=== PATIENT | female | born 1995 | race Caucasian/White ===

== ENCOUNTER → 2016-12-02 | Outpatient (REF) | payer OTHER | LOC: M LAB REF 09:23 | PROVIDERS: ATTEND Physician Assistant | DX: J02.9 Acute pharyngitis, unspecified (principal) ==

== ENCOUNTER → 2017-06-08 | Outpatient (CLI) | payer OTHER ==
[2017-06-08 11:25] LABS: BASO % 0.2 % (0.0-1.0); EOS # 0.1 K/mm3 (0.0-0.50); EOS % 1.1 % (0.0-3.0); LARGE UNSTAINED CELL # 0.1 K/mm3 (0.0-0.4); LARGE UNSTAINED CELL % 1.4 % (0.0-4.0); LYMPH # 1.8 K/mm3 (1.5-6.5); LYMPH % 22.1 % (24.0-44.0); MEAN CORPUSCULAR HEMOGLOBIN 32.8 pg (27.0-33.0); MEAN CORPUSCULAR HGB CONC 35.6 g/dl (32.0-36.5); MEAN CORPUSCULAR VOLUME 92.2 fl (80.0-96.0); MONO # 0.4 K/mm3 (0.0-0.8); MONO % 4.8 % (0.0-5.0); NEUTROPHILS # 5.4 K/mm3 (1.8-7.7); NEUTROPHILS % 70.4 % (36.0-66.0); PLATELET COUNT, AUTOMATED 224 k/mm3 (150-450); RED CELL DISTRIBUTION WIDTH 12.5 % (11.5-14.5); WHITE BLOOD COUNT 7.7 K/mm3 (4.0-10.0)
[2017-06-08 13:49] LABS: HBsAg Prenatal NEGATIVE (NEGATIVE)
== END ==
LOC: M LAB 10:31
PROVIDERS: ATTEND Advanced Practice Midwife
DX: Z34.81 Encounter for supervision of other normal pregnancy, first trimester (principal)

== ENCOUNTER → 2017-06-28 | Outpatient (REF) | payer OTHER ==
[2017-07-26 11:24] LABS: SUMMARY SEE SEPARATE REPORT
== END ==
LOC: M LAB REF 13:09
PROVIDERS: ATTEND Advanced Practice Midwife
DX: Z34.81 Encounter for supervision of other normal pregnancy, first trimester (principal)

== ENCOUNTER → 2017-09-21 | Outpatient (CLI) | payer BC, OTHER ==
[2017-09-21 13:20] LABS: BASO % 0.1 % (0.0-1.0); EOS # 0.1 10^3/uL (0.0-0.50); IMMATURE GRANULOCYTE % 0.1 % (0-0); LYMPH # 1.6 10^3/uL (1.5-6.5); LYMPH % 20.7 % (24.0-44.0); MEAN CORPUSCULAR HEMOGLOBIN 32.5 pg (27.0-33.0); MEAN CORPUSCULAR HGB CONC 34.4 g/dl (32.0-36.5); MEAN CORPUSCULAR VOLUME 94.4 fl (80.0-96.0); MONO # 0.6 10^3/uL (0.0-0.8); MONO % 7.4 % (0.0-5.0); NEUTROPHILS # 5.5 10^3/uL (1.8-7.7); NEUTROPHILS % 70.7 % (36.0-66.0); PLATELET COUNT, AUTOMATED 232 10^3/uL (150-450); RED CELL DISTRIBUTION WIDTH 12.3 % (11.5-14.5); WHITE BLOOD COUNT 7.7 10^3/uL (4.0-10.0)
== END ==
LOC: M SMT 10:11
PROVIDERS: ATTEND Advanced Practice Midwife
DX: Z36.89 Encounter for other specified antenatal screening (principal); Z3A.00 Weeks of gestation of pregnancy not specified
CPT/HCPCS: 36415; 82950; 85025; 86850; 86900; 86901; J2790

== ENCOUNTER → 2017-11-23 | Outpatient (REF) | payer OTHER | LOC: M LAB REF 17:05 | DX: Z34.83 Encounter for supervision of other normal pregnancy, third trimester (principal) ==

== ENCOUNTER 2017-12-27 10:06 | Inpatient (IN) | payer BC, OTHER ==
[2017-12-27 11:14] LABS: HEMATOCRIT 31.7 % (36.0-47.0); HEMOGLOBIN 10.7 g/dl (12.0-16.0); MEAN CORPUSCULAR HEMOGLOBIN 28.8 pg (27.0-33.0); MEAN CORPUSCULAR HGB CONC 33.8 g/dl (32.0-36.5); MEAN CORPUSCULAR VOLUME 85.4 fl (80.0-96.0); PLATELET COUNT, AUTOMATED 222 10^3/uL (150-450); RED BLOOD COUNT 3.71 10^6/uL (4.00-5.40); RED CELL DISTRIBUTION WIDTH 12.2 % (11.5-14.5); WHITE BLOOD COUNT 7.9 10^3/uL (4.0-10.0)
[2017-12-27] MEDS: miSOPROStol 50 MCG 1/2 TAB (S0191) PO ×2 (12:12→17:07)
[2017-12-27] MEDS: LR 1,000 ML IV (22:02)
[2017-12-27] MEDS: BUTORPHANOL 2 MG/ML INJ (J0595) IV (22:15)
[2017-12-27] MEDS: PROMETHAZINE INJ 25 MG/ML VIAL (J2550) IV (22:15)
[2017-12-27] MEDS ORDERED: OXYTOCIN DRIP 30 UNITS in APPROPRIATE DILUENT 1 EA IV (22:15)
[2017-12-28] MEDS: PROMETHAZINE INJ 25 MG/ML VIAL (J2550) IV (01:00)
[2017-12-28] MEDS: BUTORPHANOL 2 MG/ML INJ (J0595) IV (01:00)
[2017-12-28] MEDS: LR 1,000 ML IV ×3 (04:51→17:01)
[2017-12-28 06:59] LABS: HEMATOCRIT 30.1 % (36.0-47.0); HEMOGLOBIN 10.2 g/dl (12.0-16.0); MEAN CORPUSCULAR HEMOGLOBIN 28.9 pg (27.0-33.0); MEAN CORPUSCULAR HGB CONC 33.9 g/dl (32.0-36.5); MEAN CORPUSCULAR VOLUME 85.3 fl (80.0-96.0); PLATELET COUNT, AUTOMATED 213 10^3/uL (150-450); RED BLOOD COUNT 3.53 10^6/uL (4.00-5.40); RED CELL DISTRIBUTION WIDTH 12.2 % (11.5-14.5)
[2017-12-28] MEDS ORDERED: FENTANYL 2MCG/ML ROPIVACAINE 0.2% IN 0.9% NACL 200ML IVBAG As Ordered (07:11)
[2017-12-28] MEDS ORDERED: LACTATED RINGER'S 1000 ML IV (08:15)
[2017-12-28] MEDS ORDERED: FENTANYL/ROPIVACAINE/NACL BAG 200 ML EPIDURAL (08:15)
[2017-12-28] MEDS ORDERED: EPIDURAL COMMENT XX (08:15)
[2017-12-28] MEDS ORDERED: diphenhydrAMINE INJ 50MG/ML VIAL (J1200) IV (08:15)
[2017-12-28] MEDS ORDERED: NALOXONE INJ 0.4 MG/1 ML VIAL (J2310) IV (08:15)
[2017-12-28] MEDS ORDERED: EPIDURAL/PCA KEYS XX (08:15)
[2017-12-28] MEDS ORDERED: REFRIGERATOR IV KEYS XX (08:15)
[2017-12-28] MEDS: ePHEDrine SULFATE 25 MG/5 ML(5MG/ML) SYRINGE IV (09:13)
[2017-12-28] MEDS: ONDANSETRON 4MG/2ML VIAL (J2405) IV (11:18)
[2017-12-28] MEDS ORDERED: ceFAZolin 2 GM/D5W 50 ML IV BAG (J0690 PER 500MG) As Ordered (19:05)
[2017-12-28] MEDS ORDERED: CHLOROPROCAINE PRES. FREE 3% INJ 20 ML VIAL (J2400) As Ordered (19:15)
[2017-12-28] MEDS: AZITHROMYCIN INJ 500 MG, VIAL MATE ADAPTER 1 EACH in D5W 250 ML IV (19:15)
[2017-12-28] MEDS ORDERED: OXYTOCIN INJ 10 UNITS/ML VIAL (J2590) As Ordered ×4 (19:17→20:17)
[2017-12-28] MEDS: BICITRA 30ML SOLN UDC PO (19:22)
[2017-12-28] MEDS ORDERED: MORPHINE PRES-FREE INJ 10 MG/10 ML VIAL (J2274) As Ordered (19:23)
[2017-12-28] MEDS ORDERED: ePHEDrine SULFATE 25 MG/5 ML(5MG/ML) SYRINGE As Ordered (19:34)
[2017-12-28] MEDS ORDERED: PHENYLephrine HCL 500 MCG/5 ML (100MCG/ML) SYRINGE (J2370) As Ordered (19:35)
[2017-12-28] MEDS ORDERED: MIDAZOLAM INJ 2 MG/2 ML VIAL (J2250) As Ordered (19:40)
[2017-12-28] MEDS ORDERED: ONDANSETRON 4MG/2ML VIAL (J2405) As Ordered (19:44)
[2017-12-28] MEDS ORDERED: KETAMINE HCL 200 MG/20 ML VIAL As Ordered (19:55)
[2017-12-28] MEDS ORDERED: fentaNYL 100 MCG/2 ML INJECTION (J3010) As Ordered (20:14)
[2017-12-28 20:16] LABS: CORD GAS ABE A -2.9; CORD GAS HCO3 A 25.7 MEQ/L; CORD GAS PCO2 A 59.7 mmHg; CORD GAS PH A 7.251 UNITS; CORD GAS PO2 A 14.8 mmHg; CORD GAS SBC A 20.1 MEQ/L; CORD GAS TCO2 A 27.5 MEQ/L
[2017-12-28 20:19] LABS: CORD GAS ABE V -0.4; CORD GAS HCO3 V 26.6 MEQ/L; CORD GAS O2 SAT V 33.6 %; CORD GAS PH V 7.326 UNITS; CORD GAS PO2 V 16.3 mmHg; CORD GAS SBC V 22.4 MEQ/L; CORD GAS TCO2 V 28.2 MEQ/L
[2017-12-28] MEDS ORDERED: LR 1,000 ML IV (20:34)
[2017-12-28] MEDS ORDERED: OXYTOCIN DRIP 30 UNITS in APPROPRIATE DILUENT 1 EA IV (20:34)
[2017-12-28] MEDS ORDERED: HYDROmorphone HCL 1 MG/ML SYRINGE (J1170) As Ordered (20:41)
[2017-12-28] MEDS ORDERED: PROMETHAZINE 25 MG TAB PO (20:45)
[2017-12-28] MEDS ORDERED: PERCOCET 5MG/325MG TAB PO ×2 (20:45→21:15)
[2017-12-28] MEDS ORDERED: MEASLES,MUMPS,RUBELLA VACCINE INJ (MMR-II) (90707) SC (20:45)
[2017-12-28] MEDS ORDERED: ONDANSETRON 4MG/2ML VIAL (J2405) IV ×2 (20:45→21:15)
[2017-12-28] MEDS: KETOROLAC 30 MG/ML VIAL (J1885) IV (20:45)
[2017-12-28] MEDS ORDERED: fentaNYL 100 MCG/2 ML INJECTION (J3010) IV (21:15)
[2017-12-28] MEDS ORDERED: HYDROmorphone HCL 1 MG/ML SYRINGE (J1170) IV (21:15)
[2017-12-28] MEDS ORDERED: NALBUPHINE HCL 10 MG/ML AMP (J2300) IV (21:15)
[2017-12-28] MEDS ORDERED: MEPERIDINE INJ 25 MG/ML VIAL (J2175) IV (21:15)
[2017-12-29] MEDS: DOCUSATE SODIUM 100 MG CAP PO ×3 (00:41→21:47)
[2017-12-29] MEDS: PERCOCET 5MG/325MG TAB PO ×5 (00:42→23:05)
[2017-12-29] MEDS: KETOROLAC 30 MG/ML VIAL (J1885) IV ×3 (03:15→15:07)
[2017-12-29 07:12] LABS: HEMATOCRIT 28.8 % (36.0-47.0); HEMOGLOBIN 9.5 g/dl (12.0-16.0); MEAN CORPUSCULAR HEMOGLOBIN 28.3 pg (27.0-33.0); MEAN CORPUSCULAR VOLUME 85.7 fl (80.0-96.0); PLATELET COUNT, AUTOMATED 218 10^3/uL (150-450); RED BLOOD COUNT 3.36 10^6/uL (4.00-5.40); RED CELL DISTRIBUTION WIDTH 12.1 % (11.5-14.5); WHITE BLOOD COUNT 18.9 10^3/uL (4.0-10.0)
[2017-12-29] MEDS: PRENATAL VITAMINS CHEWABLE TABLET PO (09:14)
[2017-12-29 11:19] LABS: FETAL SCREEN PROF. 1 1
[2017-12-29] MEDS: RHOGAM 300 MCG (1500 IU) INJ (J2790) IM (12:37)
[2017-12-29] MEDS: IBUPROFEN 800 MG TAB PO (22:21)
[2017-12-30] MEDS: PERCOCET 5MG/325MG TAB PO ×2 (03:05→10:08)
[2017-12-30] MEDS: IBUPROFEN 800 MG TAB PO (07:17)
[2017-12-30] MEDS: PRENATAL VITAMINS CHEWABLE TABLET PO (10:07)
[2017-12-30] MEDS: DOCUSATE SODIUM 100 MG CAP PO (10:07)
== END 2017-12-30 12:35 | disposition home or self-care (01) | DRG 540 ==
LOC: M LDI 10:06 → M OBS 12-28 22:00
PROVIDERS: Advanced Practice Midwife
PROC: 10D00Z1 Extraction of Products of Conception, Low, Open Approach (ICD-10-PCS; principal; 2017-12-28 19:31)
PROC: 10907ZC Drainage of Amniotic Fluid, Therapeutic from Products of Conception, Via Natural or Artificial Opening (ICD-10-PCS; 2017-12-28 19:31)
PROC: 3E033VJ Introduction of Other Hormone into Peripheral Vein, Percutaneous Approach (ICD-10-PCS; 2017-12-28 19:31)
DX: O48.0 Post-term pregnancy (principal); O98.42 Viral hepatitis complicating childbirth; F32.9 Major depressive disorder, single episode, unspecified; Z3A.41 41 weeks gestation of pregnancy; O99.344 Other mental disorders complicating childbirth; F41.9 Anxiety disorder, unspecified; O34.83 Maternal care for other abnormalities of pelvic organs, third trimester; B18.2 Chronic viral hepatitis C; O62.0 Primary inadequate contractions; O61.0 Failed medical induction of labor; O62.2 Other uterine inertia; Z37.0 Single live birth

== ENCOUNTER → 2018-07-22 | Outpatient (CLI) | payer BC, OTHER ==
[2018-07-22 15:04] LABS: HEMATOCRIT 37.6 % (36.0-47.0); HEMOGLOBIN 11.9 g/dl (12.0-15.5); MEAN CORPUSCULAR HEMOGLOBIN 26.2 pg (27.0-33.0); MEAN CORPUSCULAR HGB CONC 31.6 g/dl (32.0-36.5); MEAN CORPUSCULAR VOLUME 82.6 fl (80.0-96.0); PLATELET COUNT, AUTOMATED 225 10^3/uL (150-450); RED BLOOD COUNT 4.55 10^6/uL (4.00-5.40); RED CELL DISTRIBUTION WIDTH 13.9 % (11.5-14.5); WHITE BLOOD COUNT 6.2 10^3/uL (4.0-10.0)
[2018-07-22 15:22] LABS: CONTROL LINE HCG INT CTR LINE PRESENT; HCG, SERUM QUALITATIVE NEGATIVE (NEGATIVE)
[2018-07-22 15:37] LABS: ALBUMIN 4.2 GM/DL (3.2-5.2); ALBUMIN/GLOBULIN RATIO 1.11 (1.00-1.93); ALKALINE PHOSPHATASE 90 U/L (45-117); ALT/SGPT 29 U/L (12-78); ANION GAP 7 MEQ/L (8-16); AST/SGOT 21 U/L (7-37); BILIRUBIN,TOTAL 1.2 MG/DL (0.2-1.0); BLOOD UREA NITROGEN 16 MG/DL (7-18); CALCIUM LEVEL 9.1 MG/DL (8.5-10.1); CARBON DIOXIDE LEVEL 30 MEQ/L (21-32); CHLORIDE LEVEL 105 MEQ/L (98-107); CREATININE FOR GFR 0.72 MG/DL (0.55-1.30); GLOMERULAR FILTRATION RATE > 60.0 (>60); GLUCOSE, FASTING 93 MG/DL (70-100); POTASSIUM SERUM 3.9 MEQ/L (3.5-5.1); SODIUM LEVEL 142 MEQ/L (136-145)
[2018-07-22 17:15] LABS: CHLAMYDIA DNA AMPLIFICATION NEGATIVE (NEGATIVE); GC DNA AMPLIFICATION NEGATIVE (NEGATIVE)
[2018-07-24 10:20] LABS: HEPATITIS B SURFACE ANTIGEN NEGATIVE (NEGATIVE)
[2018-07-24 10:50] LABS: HIV 1&2 SCREEN CENTAUR NEGATIVE (NEGATIVE)
[2018-07-24 11:04] LABS: HEPATITIS C VIRUS ABY INDEX > 11.0 INDEX (<0.8)
== END ==
LOC: M LAB 14:28
DX: F11.20 Opioid dependence, uncomplicated (principal)
CPT/HCPCS: 93005

== ENCOUNTER → 2019-02-11 | Outpatient (REF) | payer BC, OTHER ==
[~2019-02-11] MED LIST: COLA100C5 PO; IBUP80TA PO; OXYC1TAB23 PO; PREN1CHW4 PO; RANI150C PO
== END ==
LOC: M LAB REF 14:06
PROVIDERS: ATTEND Physician Assistant
DX: J02.9 Acute pharyngitis, unspecified (principal)

== ENCOUNTER → 2019-07-22 | Outpatient (CLI) | payer BC, OTHER ==
[2019-07-22 13:33] LABS: HEMATOCRIT 41.4 % (36.0-47.0); MEAN CORPUSCULAR HEMOGLOBIN 30.6 pg (27.0-33.0); MEAN CORPUSCULAR HGB CONC 33.8 g/dl (32.0-36.5); MEAN CORPUSCULAR VOLUME 90.6 fl (80.0-96.0); PLATELET COUNT, AUTOMATED 183 10^3/uL (150-450); RED BLOOD COUNT 4.57 10^6/uL (4.00-5.40); WHITE BLOOD COUNT 7.9 10^3/uL (4.0-10.0)
[2019-07-22 13:57] LABS: ALBUMIN 4.2 GM/DL (3.2-5.2); ALT/SGPT 26 U/L (12-78); BILIRUBIN,TOTAL 1.2 MG/DL (0.2-1.0); BLOOD UREA NITROGEN 18 MG/DL (7-18); CALCIUM LEVEL 9.2 MG/DL (8.5-10.1); CARBON DIOXIDE LEVEL 26 MEQ/L (21-32); CHLORIDE LEVEL 107 MEQ/L (98-107); CREATININE FOR GFR 0.79 MG/DL (0.55-1.30); GLOMERULAR FILTRATION RATE > 60.0 (>60); GLUCOSE, FASTING 90 MG/DL (70-100); POTASSIUM SERUM 3.6 MEQ/L (3.5-5.1); SODIUM LEVEL 139 MEQ/L (136-145); TOTAL PROTEIN 7.5 GM/DL (6.4-8.2)
[2019-07-22 16:24] LABS: CHLAMYDIA DNA AMPLIFICATION NEGATIVE (NEGATIVE); GC DNA AMPLIFICATION NEGATIVE (NEGATIVE)
--- NOTE | 2019-07-22 17:27 | ECGEPIP ---
[facility] Test Date: 2019-07-22 Pat Name: ANGELA WANG Department: Room: - Gender: Female Body Worker: : 1995 Requested By: Jesus Lopez Order Number: [id number] Reading MD: Harman Edwards Measurements Intervals [place] Rate: 84 P: 54 AR: 155 QRS: 75 QRSD: 113 T: 29 QT: 370 QTc: 438 Interpretive Statements SINUS RHYTHM WITH SINUS ARRHYTHMIA INCOMPLETE RIGHT BUNDLE BRANCH BLOCK NO CHANGE COMPARED TO 07/22/18 Electronically Signed on 07-22-2019 17:27:01 EDT by Harman Edwards
[2019-07-23 10:19] LABS: HCG, SERUM QUALITATIVE NEGATIVE (NEGATIVE)
[2019-07-23 10:39] LABS: HEPATITIS B SURFACE ANTIGEN NEGATIVE (NEGATIVE)
[2019-07-23 11:07] LABS: HIV 1&2 SCREEN CENTAUR NEGATIVE (NEGATIVE)
[2019-07-23 11:38] LABS: HEPATITIS C VIRUS ABY INDEX > 11.0 INDEX (<0.8)
== END ==
LOC: M LAB 12:59
PROVIDERS: ATTEND Family Medicine
DX: F11.20 Opioid dependence, uncomplicated (principal)

== ENCOUNTER → 2019-08-11 | Outpatient (REF) | payer OTHER | LOC: M SFHCLERA 13:28 | PROVIDERS: ATTEND Physician Assistant | DX: J02.0 Streptococcal pharyngitis (principal) ==

== ENCOUNTER → 2019-09-16 | Outpatient (CLI) | payer BC, OTHER ==
[2019-09-16 19:39] LABS: BASO % 0.3 % (0.0-1.0); EOS # 0.1 10^3/uL (0.0-0.5); EOS % 1.2 % (0.0-3.0); HEMATOCRIT 36.3 % (36.0-47.0); HEMOGLOBIN 12.4 g/dl (12.0-15.5); LYMPH # 1.9 10^3/uL (1.5-5.0); LYMPH % 29.2 % (24.0-44.0); MEAN CORPUSCULAR HEMOGLOBIN 31.5 pg (27.0-33.0); MEAN CORPUSCULAR HGB CONC 34.2 g/dl (32.0-36.5); MEAN CORPUSCULAR VOLUME 92.1 fl (80.0-96.0); MONO # 0.5 10^3/uL (0.0-0.8); MONO % 7.5 % (0.0-5.0); NEUTROPHILS % 61.5 % (36.0-66.0); PLATELET COUNT, AUTOMATED 201 10^3/uL (150-450); RED BLOOD COUNT 3.94 10^6/uL (4.00-5.40); WHITE BLOOD COUNT 6.4 10^3/uL (4.0-10.0)
[2019-09-16 20:07] LABS: AMPHETAMINES URINE REFLEX NEGATIVE (NEGATIVE); BARBITURATES URINE REFLEX NEGATIVE (NEGATIVE); BENZODIAZEPINES URINE REFLEX NEGATIVE (NEGATIVE); CANNABINOIDS URINE REFLEX NEGATIVE (NEGATIVE); COCAINE METABOLITE URINE REFLE NEGATIVE (NEGATIVE); OPIATES URINE REFLEX NEGATIVE (NEGATIVE); PHENCYCLIDINE URINE REFLEX NEGATIVE (NEGATIVE)
[2019-09-16 20:12] LABS: METHADONE URINE REFLEX PENDING CONFIRMATION (NEGATIVE)
[2019-09-16 21:21] LABS: CHLAMYDIA DNA AMPLIFICATION NEGATIVE (NEGATIVE); GC DNA AMPLIFICATION NEGATIVE (NEGATIVE)
[2019-09-17 13:44] LABS: HIV 1&2 SCREEN CENTAUR NEGATIVE (NEGATIVE); RUBELLA IgG QUALITATIVE IMMUNE (IMMUNE)
[2019-09-17 13:45] LABS: HEPATITIS C VIRUS ABY INDEX > 11.0 INDEX (<0.8)
== END ==
LOC: M LRY 12:48
PROVIDERS: ATTEND Advanced Practice Midwife
DX: Z3A.01 Less than 8 weeks gestation of pregnancy (principal); Z34.81 Encounter for supervision of other normal pregnancy, first trimester
CPT/HCPCS: 36415; 80307; 85025; 86762; 86780; 86803; 86850; 87086; 87340; 87389; 87491; 87521; 87591; G0480

== ENCOUNTER → 2019-10-16 | Outpatient (REF) | payer OTHER | LOC: M SFHCWAGY 09:09 | PROVIDERS: ATTEND Advanced Practice Midwife | DX: Z12.4 Encounter for screening for malignant neoplasm of cervix (principal) ==

== ENCOUNTER → 2019-11-13 | Outpatient (CLI) | payer BC, OTHER ==
[2019-11-13 18:22] LABS: FREE T4 1.13 NG/DL (0.76-1.46); THYROID STIMULATING HORMONE 0.762 uIU/ML (0.358-3.740)
--- NOTE | 2019-11-14 05:11 | REP ---
Clinical: Anatomical evaluation. Comparison: None . Findings: Examination demonstrates a single live intrauterine in breech presentation. motion is identified by technologist. Placenta is noted posterior/left lateral and grade zero without evidence for placenta previa or abruption. Amniotic fluid volume is normal. Cervix measures 3.0 cm in length and appears closed. No evidence for nuchal cord. Gestational age by current measurements 19 weeks 5 days with MAXIMUS 04/03/2020 . FHR equals 135 beats per minute. BPD 4.6 cm 19 weeks 6 days HC 16.1 cm 18 weeks 6 days AC 14.4 cm 19 weeks 5 days FL 2.8 cm 18 weeks 4 days HL 2.8 cm 19 weeks 0 days HC/AC ratio 1.12 Estimated weight 279 grams ( 29th percentile). Anatomical assessment demonstrates normal structures including cranium, cavum, cerebellum/posterior fossa, facial features, lungs, four-chamber heart/ventricular outflow tracts, diaphragm, stomach, cord insertion/three-vessel cord, kidneys/bladder, and extremities. Bilateral choroid plexus cysts are identified measuring up to 10 mm on the right and 6 - 8 mm on the left. Impression: 1. Single live intrauterine in breech presentation. 2. Bilateral choroid plexus cysts and incomplete evaluation of the spine warrant reevaluation and follow-up.
== END ==
LOC: M WHC 15:01
PROVIDERS: ATTEND Advanced Practice Midwife
DX: L29.9 Pruritus, unspecified (principal)

== ENCOUNTER → 2019-12-21 | Outpatient (CLI) | payer BC, OTHER ==
--- NOTE | 2019-12-21 10:06 | REP ---
Obstetric sonography: History: Supervision of followup anatomy. Spine, cord plexus cysts. Comparison of OB sonography November 13, 2019. Findings: Scanning through the gravid uterus demonstrates a viable single intrauterine gestation in a cephalic lie. motion is observed and heart rate is recorded at 132 beats per minute. A posterior grade zero placenta is seen without evidence of previa. Amniotic fluid is subjectively normal. Closed cervical length measures 3.7 cm and viewed transabdominally. No extrauterine abnormality is seen. There has been appropriate interval growth. The previously noted choroid plexus cysts have resolved. The spine is visualized and felt to be unremarkable today. Biometry chart: BPD 6.1 cm 24 weeks 5 days head circumference 22.2 cm 24 weeks 2 days abdominal pounds 19.6 cm 24 weeks 2 days femur length 4.3 cm 23 weeks 6 days humeral length 3.9 cm 24 weeks 0 days HC/AC ratio normal 1.13 cephalic index normal 0.76 estimated weight 606 5 grams, 1 pound 7 ounces, 18th percentile for 25 weeks 1 day. Impression: Viable single intrauterine gestation at 23 weeks 6 days by today's composite sonographic criteria. Expected gestational age estimate based on prior sonography is 25 weeks 1 day. MAXIMUS by prior sonography April 03, 2020. In conjunction with the prior study, anatomic survey is felt to be complete. Electronically Signed by Yosi Castellanos MD 12/21/2019 09:57 A
== END ==
LOC: M WHC 08:33
PROVIDERS: ATTEND Advanced Practice Midwife
DX: Z34.82 Encounter for supervision of other normal pregnancy, second trimester (principal)

== ENCOUNTER → 2020-01-11 | Outpatient (REF) | payer OTHER, MEDICAID ==
[2020-01-11 13:34] LABS: HEMOGLOBIN 11.7 g/dl (12.0-15.5); MEAN CORPUSCULAR HEMOGLOBIN 31.2 pg (27.0-33.0); MEAN CORPUSCULAR HGB CONC 33.4 g/dl (32.0-36.5); MEAN CORPUSCULAR VOLUME 93.3 fl (80.0-96.0); PLATELET COUNT, AUTOMATED 196 10^3/uL (150-450); RED BLOOD COUNT 3.75 10^6/uL (4.00-5.40); WHITE BLOOD COUNT 7.6 10^3/uL (4.0-10.0)
== END ==
LOC: M PLALAB 09:41
PROVIDERS: ATTEND Advanced Practice Midwife
DX: O34.211 Maternal care for low transverse scar from previous cesarean delivery (principal); Z3A.27 27 weeks gestation of pregnancy

== ENCOUNTER → 2020-02-20 | Outpatient (REF) | payer OTHER, MEDICAID | LOC: M PLALAB 12:18 | PROVIDERS: ATTEND Advanced Practice Midwife | DX: Z36.89 Encounter for other specified antenatal screening (principal); O34.211 Maternal care for low transverse scar from previous cesarean delivery; Z3A.00 Weeks of gestation of pregnancy not specified | CPT/HCPCS: 36415; 86850; 86900; 86901; J2790 ==

== ENCOUNTER → 2020-03-06 | Outpatient (REF) | payer OTHER, MEDICAID | LOC: M SFHCWAGY 18:29 | PROVIDERS: ATTEND Advanced Practice Midwife | DX: O34.211 Maternal care for low transverse scar from previous cesarean delivery (principal); Z3A.33 33 weeks gestation of pregnancy ==

== ENCOUNTER → 2020-03-17 | Outpatient (REF) | payer OTHER, MEDICAID ==
[~2020-03-17] MED LIST changes: +METH40TA3 PO; +METHADONE PO
== END ==
LOC: M PLALAB 12:02
PROVIDERS: ATTEND Advanced Practice Midwife
DX: O34.211 Maternal care for low transverse scar from previous cesarean delivery (principal)

== ENCOUNTER → 2020-03-30 | Outpatient (CLI) | payer OTHER, MEDICAID ==
[~2020-03-30] MED LIST changes: +ACET-683 PO; +TUMS750C22 PO
== END ==
LOC: M LABSMTC 10:34
PROVIDERS: ATTEND Anesthesiology
DX: Z11.59 Encounter for screening for other viral diseases (principal); Z03.818 Encounter for observation for suspected exposure to other biological agents ruled out
CPT/HCPCS: C9803; U0003

== ENCOUNTER 2020-04-02 05:51 | Inpatient (IN) | payer BC, OTHER ==
[~2020-04-02] VITALS: Ht 160 cm; Wt 73.8 kg
[2020-04-02] VITALS (8 sets, daily range): BP systolic 104–129; BP diastolic 57–68
[~2020-04-02 05:51] MED LIST changes: -ACET-683 PO; -TUMS750C22 PO
[2020-04-02] MEDS ORDERED: LR 1,000 ML IV ONE (06:00)
[2020-04-02] MEDS ORDERED: ceFAZolin SOD 2 GM in IV 1 EA IV ONE (06:00)
[2020-04-02] MEDS ORDERED: BICITRA 30ML SOLN UDC PO ONE (06:00)
[2020-04-02] MEDS ORDERED: ACET-683 PO (06:28)
[2020-04-02] MEDS ORDERED: TUMS750C22 PO (06:28)
[2020-04-02] MEDS ORDERED: MORPHINE PRES-FREE INJ 10 MG/10 ML VIAL (J2274) As Ordered ONE (06:51)
[2020-04-02] MEDS ORDERED: OXYTOCIN INJ 10 UNITS/ML VIAL (J2590) As Ordered ONE ×2 (06:51→06:52)
[2020-04-02] MEDS ORDERED: ePHEDrine SULFATE 25 MG/5 ML(5MG/ML) SYRINGE As Ordered ONE (06:51)
[2020-04-02] MEDS ORDERED: PHENYLephrine HCL 500 MCG/5 ML (100MCG/ML) SYRINGE (J2370) As Ordered ONE (06:51)
[2020-04-02] MEDS ORDERED: ONDANSETRON 4MG/2ML VIAL As Ordered ONE (06:52)
[2020-04-02] MEDS ORDERED: dexameTHASONE 4 MG/ML 1ML VIAL (J1100 PER 1MG) As Ordered ONE (06:52)
[2020-04-02] MEDS ORDERED: KETOROLAC 60MG 2ML VIAL As Ordered ONE (06:52)
[2020-04-02] MEDS ORDERED: OXYTOCIN 30 UNITS IN 0.9% NaCl 500ML IV BAG (J2590) As Ordered ONE ×2 (06:56→09:13)
[2020-04-02 06:59] LABS: HEMATOCRIT 32.2 % (36.0-47.0); HEMOGLOBIN 10.7 g/dl (12.0-15.5); MEAN CORPUSCULAR HEMOGLOBIN 27.8 pg (27.0-33.0); MEAN CORPUSCULAR HGB CONC 33.2 g/dl (32.0-36.5); MEAN CORPUSCULAR VOLUME 83.6 fl (80.0-96.0); PLATELET COUNT, AUTOMATED 227 10^3/uL (150-450); RED BLOOD COUNT 3.85 10^6/uL (4.00-5.40); WHITE BLOOD COUNT 9.8 10^3/uL (4.0-10.0)
[2020-04-02] MEDS ORDERED: LR 1,000 ML IV SCH ×3 (07:00→10:00)
[2020-04-02] MEDS ORDERED: diphenhydrAMINE 50MG/ML VIAL (J1200) IV PRN (07:47)
[2020-04-02] MEDS ORDERED: NALOXONE INJ 0.4MG/1ML VIAL (J2310 PER 1MG) IV PRN ×2 (07:47)
[2020-04-02] MEDS ORDERED: ONDANSETRON 4MG/2ML VIAL IV PRN ×3 (07:47→10:00)
[2020-04-02] MEDS ORDERED: NALBUPHINE HCL 10 MG/ML AMP (J2300) IV PRN (07:47)
[2020-04-02] MEDS ORDERED: METOCLOPRAMIDE INJ 10MG/2ML VIAL (J2765 PER 1) IV PRN ×2 (07:47→10:00)
[2020-04-02] MEDS ORDERED: ESMOLOL INJ 100MG/10ML VIAL As Ordered ONE (07:56)
[2020-04-02] MEDS ORDERED: MIDAZOLAM INJ 2MG/2ML VIAL (J2250 PER 1MG) As Ordered ONE (08:07)
[2020-04-02] MEDS ORDERED: OXYTOCIN DRIP 30 UNITS in IV 1 EA IV SCH (09:09)
[2020-04-02] MEDS ORDERED: RHOGAM 300 MCG (1500 IU) INJ (J2790) IM SCH (09:15)
[2020-04-02] MEDS ORDERED: MEASLES,MUMPS,RUBELLA VACCINE INJ (MMR-II) (90707) SC SCH (09:15)
[2020-04-02] MEDS ORDERED: MOM 30ML SUSPENSION UDC PO PRN (09:15)
[2020-04-02] MEDS ORDERED: PERCOCET 5MG/325MG TAB PO PRN (09:15)
--- NOTE | 2020-04-02 09:32 | ROOPDOC ---
[facility] Report Of Operation Report of Operation DATE OF PROCEDURE: 04/02/20 SURGEON: Lorin Wahl M.D. FLOW SPECIALIST: Selena Huang CNM PREOPERATIVE DIAGNOSIS: 1. History of prior section 2. Intrauterine at 39 weeks POSTOPERATIVE DIAGNOSIS: 1. History of prior section 2. Intrauterine at 39 weeks ANESTHESIA: Spinal ESTIMATED BLOOD LOSS: 600 mL URINE OUTPUT: 25 mL INTRAVENOUS FLUIDS: 1700 mL PREOPERATIVE ANTIBIOTICS:. 2 g of Ancef OPERATIVE FINDINGS: Liveborn male , Apgars 9 and 9 was 8 lbs. 13 oz. at 3990 g SPECIMENS:. Cord blood DESCRIPTION OF PROCEDURE: After informed consent was obtained and written consent was reviewed. The patient was brought to the operating room where spinal anesthesia was placed. She was then placed in the supine position with a left lateral tilt. Kinney catheter was placed and to gravity. Patient was then prepped and draped in the normal sterile fashion. A timeout operating room was performed identifying the patient, procedure be performed as well as drug allergies. Anesthesia was tested and deemed to be adequate. Pfannenstiel skin incision was made and this was carried down to the underlying rectus fascia. The fascia was then scored and this incision was extended bilaterally. The fascia was then dissected off the underlying rectus muscle superiorly and inferiorly. The rectus muscles were then in the midline. The peritoneum is then entered. Vesicouterine peritoneum was then tented and excised and a bladder flap was created. Mobius retractor was then placed. Next, a curvilinear incision was then made in the lower uterine segment. Amniotomy was performed, productive, clear fluid. The head was brought to the level of the incision atraumatically and delivered along the shoulders and corpus. The cord was clamped x 2. The infant was brought over to the warmer with a good cry. Placenta was drained and delivered grossly intact. The uterus was cleared of all clots and debris and the uterine incision was then closed in 2 layers using 0 Vicryl, first in a running locking fashion followed by second layer for imbrication. The abdomen suctioned. Surgical sites reinspected and noted be hemostatic. The retractor was then removed. The anterior peritoneum was then reapproximated with 3-0 Vicryl. The rectus muscles were reapproximated 3-0 Vicryl. The fascia was then closed using 0 Vicryl in a running nonlocking fashion. The subcutaneous tissues was then irrigated and suctioned. Subcutaneous tissue was reapproximated using 3-0 Vicryl. Several subdermal stitch is placed using 3-0 Vicryl and the skin was closed with 4-0 Monocryl and subcuticular fashion. This incision was then cleaned and dried and was dressed. The patient was then taken to recovery in stable condition. All counts were correct. My surgical dressing maker Selena Huang played in an essential role during the operation. They assisted with tissue identification retraction, delivery of the , as well as wound closure. LORIN WAHL MD. Apr 02, 2020 09:31
[2020-04-02] MEDS ORDERED: fentaNYL 100 MCG/2 ML INJECTION (J3010) IV PRN (10:00)
[2020-04-02] MEDS: DOCUSATE SODIUM 100 MG CAP PO SCH ×2 (10:42→19:29)
[2020-04-02] MEDS: PRENATAL VITAMINS CHEWABLE TABLET PO SCH (10:42)
[2020-04-02] MEDS: KETOROLAC 30 MG/ML 1ML VIAL IV SCH ×2 (14:16→21:24)
[2020-04-02] MEDS: PERCOCET 5MG/325MG TAB PO PRN ×2 (15:08→19:30)
[2020-04-03] VITALS (7 sets, daily range): BP systolic 107–117; BP diastolic 56–65
[2020-04-03] MEDS: PERCOCET 5MG/325MG TAB PO PRN ×3 (02:41→22:26)
[2020-04-03] MEDS: KETOROLAC 30 MG/ML 1ML VIAL IV SCH (03:06)
[2020-04-03 08:47] LABS: MEAN CORPUSCULAR HEMOGLOBIN 27.6 pg (27.0-33.0); MEAN CORPUSCULAR VOLUME 86.2 fl (80.0-96.0); PLATELET COUNT, AUTOMATED 139 10^3/uL (150-450); WHITE BLOOD COUNT 7.7 10^3/uL (4.0-10.0)
[2020-04-03] MEDS: PRENATAL VITAMINS CHEWABLE TABLET PO SCH (09:11)
[2020-04-03] MEDS: METHADONE 10 MG TAB (S0109) PO SCH (09:12)
[2020-04-03] MEDS: DOCUSATE SODIUM 100 MG CAP PO SCH ×2 (09:12→19:25)
[2020-04-03] MEDS: IBUPROFEN 800 MG TAB PO SCH ×2 (11:25→19:25)
[2020-04-04 02:00] VITALS: BP 117/57
[2020-04-04] MEDS: IBUPROFEN 800 MG TAB PO SCH ×2 (02:31→11:04)
[2020-04-04 06:00] VITALS: BP 107/55
[2020-04-04] MEDS: PERCOCET 5MG/325MG TAB PO PRN (06:13)
[2020-04-04] MEDS ORDERED: OXYC1TAB23 PO (06:46)
[2020-04-04] MEDS ORDERED: IBUP80TA PO (06:46)
[2020-04-04] MEDS: PRENATAL VITAMINS CHEWABLE TABLET PO SCH ×2 (08:45→08:49)
[2020-04-04] MEDS: DOCUSATE SODIUM 100 MG CAP PO SCH (08:45)
[2020-04-04] MEDS: METHADONE 10 MG TAB (S0109) PO SCH (08:46)
[2020-04-04] MEDS ORDERED: BOOSTRIX/ADACEL VACCINE (DIPHTH/PERTUSS/ACELL/TETANUS) 0.5ML SYR IM ONE (09:00)
--- NOTE | 2020-04-06 15:24 | DSES ---
DATE OF ADMISSION: 04/02/2020 DATE OF DISCHARGE: 04/04/2020 HISTORY: A 24-year-old female, 39 weeks gestation, presents for repeat section. 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 HOSPITAL COURSE: Patient was admitted on 04/02/2020. She had repeat section for an 8 pound, 13 ounce male . There were no complications. Her postoperative course was unremarkable. She had adequate return of bladder and bowel function. Her postoperative hemoglobin was 8.0 g/dL. She was deemed stable for discharge on postoperative day #2. ADMISSION DIAGNOSIS: 1. , term. 2. Prior (C) section. DISCHARGE DIAGNOSIS: Delivered. PROCEDURE: Repeat elective section. DISPOSITION: Patient will followup with Dr. Wahl in two weeks. She will take Percocet for pain and defer use of methadone at this time.
== END 2020-04-04 12:10 | disposition home or self-care (01) | DRG 540 ==
LOC: M LDI 05:51 → M OBS 10:26
PROVIDERS: ADMIT Obstetrics & Gynecology; ATTEND Obstetrics & Gynecology
PROC: 10D00Z1 Extraction of Products of Conception, Low, Open Approach (ICD-10-PCS; principal; 2020-04-02 07:30)
DX: O34.211 Maternal care for low transverse scar from previous cesarean delivery (principal); Z3A.39 39 weeks gestation of pregnancy; Z37.0 Single live birth

== ENCOUNTER → 2020-12-27 | Outpatient (REF) | payer OTHER ==
[~2020-12-27] MED LIST changes: +ACET-683 PO; +TUMS750C22 PO
== END ==
LOC: M WUC 19:36
PROVIDERS: ATTEND Physician Assistant
DX: J02.9 Acute pharyngitis, unspecified (principal)

== ENCOUNTER → 2021-02-02 | Outpatient (CLI) | payer BC, OTHER ==
--- NOTE | 2021-02-02 15:34 | REP ---
INDICATION: ACUTE BRONCHITIS COMPARISON: None. TECHNIQUE: PA/Lateral FINDINGS: Lungs: Clear, no infiltrate. Heart: Normal in size. Mediastinum: Mediastinal silhouette unremarkable. Pleural angles: Unremarkable.. Bones and soft tissues: Unremarkable. IMPRESSION: No acute pulmonary disease. <Electronically signed by Jesus Moore > 02/02/21 [id number]
== END ==
LOC: M WUC 13:19
PROVIDERS: ATTEND Physician Assistant
DX: J20.9 Acute bronchitis, unspecified (principal)

== ENCOUNTER 2021-02-17 10:14 | Emergency (ER) | payer BC, OTHER ==
[~2021-02-17] VITALS: Ht 165.1 cm; Wt 71.6 kg
[2021-02-17 10:15] VITALS: BP 115/66
--- NOTE | 2021-02-17 11:27 | REP ---
INDICATION: RIGHT SIDE CHEST WALL PAIN COMPARISON: None. TECHNIQUE: Frontal view of the chest with four views of the right hemithorax. FINDINGS: Frontal view of the chest demonstrates no acute cardiopulmonary process, contusion, effusion, or pneumothorax. Multiple views of the right hemithorax demonstrates no acute rib fracture/injury or pathology. IMPRESSION: Normal rib series. <Electronically signed by Angel Rincon > 02/17/21 [id number]
[2021-02-17] MEDS ORDERED: INDO50CA91 PO (11:43)
[2021-02-17] MEDS ORDERED: BENZ200C70 PO (11:43)
[2021-02-17] MEDS ORDERED: VENTAER INH (11:45)
== END 2021-02-17 11:55 | disposition home or self-care (01) ==
LOC: M ED 10:14
DX: R07.9 Chest pain, unspecified (principal); F17.200 Nicotine dependence, unspecified, uncomplicated; Z79.899 Other long term (current) drug therapy

== ENCOUNTER 2021-04-18 03:35 | Emergency (ER) | payer BC, OTHER ==
[~2021-04-18] VITALS: Ht 165.1 cm; Wt 68.3 kg
[~2021-04-18 03:35] MED LIST changes: +BENZ200C70 PO; +INDO50CA91 PO; +VENTAER INH
[2021-04-18] MEDS ORDERED: METH10TA2 PO (03:42)
[2021-04-18] MEDS ORDERED: LILL1TAB PO (03:42)
[2021-04-18] MEDS ORDERED: NS 1,000 ML IV ONE (07:15)
[2021-04-18] MEDS ORDERED: GI COCKTAIL 50ML BTL(HYOSCYAMINE/MAALOX/LIDOCAINE VISCOUS)(1:3:1) PO ONE (07:50)
[2021-04-18] MEDS ORDERED: ONDANSETRON 4MG/2ML VIAL IV ONE (08:00)
[2021-04-18 08:06] LABS: BASO % 0.2 % (0.0-1.0); EOS # 0.1 10^3/uL (0.0-0.5); EOS % 0.9 % (0.0-3.0); HEMATOCRIT 42.9 % (36.0-47.0); HEMOGLOBIN 14.5 g/dl (12.0-15.5); LYMPH % 15.7 % (24.0-44.0); MEAN CORPUSCULAR HEMOGLOBIN 30.4 pg (27.0-33.0); MEAN CORPUSCULAR HGB CONC 33.8 g/dl (32.0-36.5); MEAN CORPUSCULAR VOLUME 89.9 fl (80.0-96.0); MONO # 0.6 10^3/uL (0.0-0.8); NEUTROPHILS % 77.9 % (36.0-66.0); PLATELET COUNT, AUTOMATED 222 10^3/uL (150-450); RED BLOOD COUNT 4.77 10^6/uL (4.00-5.40); WHITE BLOOD COUNT 12.9 10^3/uL (4.0-10.0)
[2021-04-18 08:32] LABS: BILIRUBIN,DIRECT 0.3 MG/DL (0.0-0.2); BILIRUBIN,TOTAL 1.4 MG/DL (0.2-1.0); C REACTIVE PROTEIN QUANTITATIV 2.71 MG/DL (0.00-0.30); TOTAL PROTEIN 7.8 GM/DL (6.4-8.2)
[2021-04-18] MEDS ORDERED: cefTRIAXone SOD 1 GM in D5W MINI-BAG PLUS 50 ML IV ONE (08:40)
--- NOTE | 2021-04-18 08:41 | REP ---
INDICATION: right buttock, abscess r/o COMPARISON: None TECHNIQUE: Real time frank scale and B-mode ultrasound examination using linear high-frequency transducer. FINDINGS: Directed ultrasound examination overlying the right gluteal region demonstrates subcutaneous edema with a somewhat ill-defined hypervascular complex area measuring 14 x 8 x 4 mm suspicious for phlegmon and forming abscess. IMPRESSION: 1. Ill-defined complex hypervascular focus suggesting forming phlegmon/abscess. <Electronically signed by Angel Rincon > 04/18/21 [id number]
[2021-04-18] MEDS ORDERED: LIDOCAINE 1% MDV 20ML VIAL SC ONE (10:10)
[2021-04-18] MEDS ORDERED: CEPH500C PO (10:43)
[2021-04-18] MEDS ORDERED: BACITRACIN OINTMENT 30GM TUBE TOP ONE (10:50)
[2021-04-18 10:52] VITALS: BP 106/59
== END 2021-04-18 11:12 | disposition home or self-care (01) ==
LOC: EEVIPCON 03:35 → M ED 03:35
DX: L02.31 Cutaneous abscess of buttock (principal); R11.2 Nausea with vomiting, unspecified; Z86.14 Personal history of Methicillin resistant Staphylococcus aureus infection; Z87.01 Personal history of pneumonia (recurrent); Z87.898 Personal history of other specified conditions
CPT/HCPCS: 10060; 36415; 76882; 80047; 80076; 83605; 83690; 85025; 86140; 87040; 87070; 87077; 87186; 87205; 96365; 96366; 96375; 99284; J0696; J2405

== ENCOUNTER → 2021-05-15 | Outpatient (CLI) | payer BC, OTHER ==
[~2021-05-15] MED LIST changes: +CEPH500C PO; +LILL1TAB PO; +METH-1177 PO
[2021-05-15 11:04] LABS: HEMATOCRIT 40.4 % (36.0-47.0); HEMOGLOBIN 13.7 g/dl (12.0-15.5); MEAN CORPUSCULAR HEMOGLOBIN 31.1 pg (27.0-33.0); MEAN CORPUSCULAR HGB CONC 33.9 g/dl (32.0-36.5); MEAN CORPUSCULAR VOLUME 91.6 fl (80.0-96.0); PLATELET COUNT, AUTOMATED 213 10^3/uL (150-450); RED BLOOD COUNT 4.41 10^6/uL (4.00-5.40)
[2021-05-15 11:38] LABS: ALBUMIN 4.2 GM/DL (3.2-5.2); ALT/SGPT 22 U/L (12-78); BILIRUBIN,TOTAL 1.4 MG/DL (0.2-1.0); BLOOD UREA NITROGEN 13 MG/DL (7-18); CALCIUM LEVEL 9.5 MG/DL (8.5-10.1); CARBON DIOXIDE LEVEL 29 MEQ/L (21-32); CHLORIDE LEVEL 105 MEQ/L (98-107); CREATININE FOR GFR 0.83 MG/DL (0.55-1.30); GLOMERULAR FILTRATION RATE > 60.0 (>60); GLUCOSE, FASTING 79 MG/DL (70-100); POTASSIUM SERUM 3.8 MEQ/L (3.5-5.1); SODIUM LEVEL 139 MEQ/L (136-145); TOTAL PROTEIN 7.5 GM/DL (6.4-8.2)
--- NOTE | 2021-05-15 11:38 | ECGEPIP ---
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
[2021-05-15 11:48] LABS: HCG, SERUM QUALITATIVE NEGATIVE (NEGATIVE)
[2021-05-15 11:57] LABS: HEPATITIS B SURFACE ANTIGEN NEGATIVE (NEGATIVE)
[2021-05-15 12:26] LABS: HIV 1&2 SCREEN CENTAUR NEGATIVE (NEGATIVE)
[2021-05-15 12:32] LABS: HEPATITIS C VIRUS ABY INDEX > 11.0 INDEX (<0.8)
[2021-05-15 15:33] LABS: GC DNA AMPLIFICATION NEGATIVE (NEGATIVE)
== END ==
LOC: M LAB 10:25
PROVIDERS: ATTEND Family Medicine
DX: F11.20 Opioid dependence, uncomplicated (principal)

== ENCOUNTER → 2021-07-31 | Outpatient (REF) | payer OTHER ==
[2021-07-31 22:45] LABS: RSV AMPLIFICATION NEGATIVE (NEGATIVE)
== END ==
LOC: M LAB REF 21:21
PROVIDERS: ATTEND Physician Assistant
DX: R50.9 Fever, unspecified (principal); R05.9 Cough, unspecified

== ENCOUNTER → 2022-01-02 | Outpatient (REF) | payer MEDICAID | LOC: M LAB REF 18:07 | PROVIDERS: ATTEND Physician Assistant | DX: J02.9 Acute pharyngitis, unspecified (principal) ==

== ENCOUNTER → 2022-04-07 | Outpatient (CLI) | payer BC, OTHER, MEDICAID ==
[2022-04-07 12:40] LABS: HEMATOCRIT 41.2 % (36.0-47.0); MEAN CORPUSCULAR HEMOGLOBIN 31.6 pg (27.0-33.0); PLATELET COUNT, AUTOMATED 189 10^3/uL (150-450); RED BLOOD COUNT 4.43 10^6/uL (4.00-5.40); WHITE BLOOD COUNT 9.4 10^3/uL (4.0-10.0)
[2022-04-07 12:46] LABS: ALBUMIN 4.2 GM/DL (3.2-5.2); ALT/SGPT 72 U/L (12-78); BILIRUBIN,TOTAL 0.9 MG/DL (0.2-1.0); BLOOD UREA NITROGEN 13 MG/DL (7-18); CALCIUM LEVEL 8.9 MG/DL (8.5-10.1); CARBON DIOXIDE LEVEL 31 MEQ/L (21-32); CHLORIDE LEVEL 107 MEQ/L (98-107); CREATININE FOR GFR 0.88 MG/DL (0.55-1.30); GLOMERULAR FILTRATION RATE > 60.0 (>60); GLUCOSE, FASTING 82 MG/DL (70-100); POTASSIUM SERUM 3.5 MEQ/L (3.5-5.1); SODIUM LEVEL 141 MEQ/L (136-145)
[2022-04-07 12:49] LABS: HCG, SERUM QUALITATIVE NEGATIVE (NEGATIVE)
[2022-04-07 13:36] LABS: HEPATITIS B SURFACE ANTIGEN NEGATIVE (NEGATIVE)
[2022-04-07 13:59] LABS: GC DNA AMPLIFICATION NEGATIVE (NEGATIVE)
[2022-04-07 14:05] LABS: HIV 1&2 SCREEN CENTAUR NEGATIVE (NEGATIVE)
[2022-04-07 14:26] LABS: HEPATITIS C VIRUS ABY INDEX > 11.0 INDEX (<0.8)
== END ==
LOC: M WUC 08:51
PROVIDERS: ATTEND Family Medicine
DX: F11.11 Opioid abuse, in remission (principal)

== ENCOUNTER → 2022-04-07 | Outpatient (CLI) | payer BC, OTHER, MEDICAID ==
[2022-04-07 12:41] LABS: BASO % 0.3 % (0.0-1.0); EOS # 0.3 10^3/uL (0.0-0.5); EOS % 2.6 % (0.0-3.0); HEMATOCRIT 41.6 % (36.0-47.0); LYMPH # 1.9 10^3/uL (1.5-5.0); LYMPH % 20.6 % (24.0-44.0); MEAN CORPUSCULAR HEMOGLOBIN 31.3 pg (27.0-33.0); MEAN CORPUSCULAR HGB CONC 33.7 g/dl (32.0-36.5); MEAN CORPUSCULAR VOLUME 93.1 fl (80.0-96.0); MONO # 0.8 10^3/uL (0.0-0.8); MONO % 8.2 % (2.0-8.0); NEUTROPHILS # 6.4 10^3/uL (1.5-8.5); PLATELET COUNT, AUTOMATED 186 10^3/uL (150-450); RED BLOOD COUNT 4.47 10^6/uL (4.00-5.40); WHITE BLOOD COUNT 9.4 10^3/uL (4.0-10.0)
[2022-04-07 12:51] LABS: ALT/SGPT 67 U/L (12-78); BLOOD UREA NITROGEN 13 MG/DL (7-18); CALCIUM LEVEL 9.3 MG/DL (8.5-10.1); CARBON DIOXIDE LEVEL 28 MEQ/L (21-32); CHLORIDE LEVEL 108 MEQ/L (98-107); CREATININE FOR GFR 0.83 MG/DL (0.55-1.30); GLOMERULAR FILTRATION RATE > 60.0 (>60); GLUCOSE, FASTING 86 MG/DL (70-100); POTASSIUM SERUM 3.6 MEQ/L (3.5-5.1); SODIUM LEVEL 142 MEQ/L (136-145); TOTAL PROTEIN 7.1 GM/DL (6.4-8.2)
[2022-04-07 13:07] LABS: TOTAL 25(OH) VITAMIN D 39.5 NG/ML (30.0-100.0)
== END ==
LOC: M WUC 08:54
PROVIDERS: ATTEND Nurse Practitioner Family
DX: F41.9 Anxiety disorder, unspecified (principal); E55.9 Vitamin D deficiency, unspecified

== ENCOUNTER → 2022-12-09 | Outpatient (REF) | payer OTHER, MEDICAID | LOC: M LAB REF 11:34 | PROVIDERS: ATTEND Physician Assistant | DX: J02.9 Acute pharyngitis, unspecified (principal) ==

== ENCOUNTER → 2024-05-14 | Outpatient (REF) | payer OTHER, MEDICAID | LOC: M LAB REF 16:05 | PROVIDERS: ATTEND Student in an Organized Health Care Education/Training Program | DX: R30.0 Dysuria (principal) ==

== ENCOUNTER → 2024-06-14 | Outpatient (REF) | payer OTHER, MEDICAID | LOC: M LAB REF 16:06 | PROVIDERS: ATTEND Physician Assistant | DX: Z11.8 Encounter for screening for other infectious and parasitic diseases (principal) ==

== ENCOUNTER → 2024-07-05 | Outpatient (REF) | payer OTHER, MEDICAID | LOC: M LAB REF 12:08 | PROVIDERS: ATTEND Physician Assistant | DX: B34.9 Viral infection, unspecified (principal) ==

== ENCOUNTER → 2025-01-10 | Outpatient (REF) | payer OTHER, MEDICAID ==
[2025-01-10 14:12] LABS: HEMATOCRIT 42.5 % (36.0-47.0); HEMOGLOBIN 14.6 g/dl (12.0-15.5); MEAN CORPUSCULAR HEMOGLOBIN 31.9 pg (27.0-33.0); MEAN CORPUSCULAR HGB CONC 34.4 g/dl (32.0-36.5); MEAN CORPUSCULAR VOLUME 92.8 fl (80.0-96.0); PLATELET COUNT, AUTOMATED 244 10^3/uL (150-450); RED BLOOD COUNT 4.58 10^6/uL (4.00-5.40)
[2025-01-10 14:26] LABS: HEMOGLOBIN A1c 4.3 % (4.0-6.0)
[2025-01-10 14:41] LABS: THYROID STIMULATING HORMONE 0.569 uIU/ML (0.55-4.78)
[2025-01-10 15:02] LABS: ALBUMIN 4.4 G/DL (3.2-5.2); ALKALINE PHOSPHATASE 58 U/L (35-104); ALT/SGPT 78 U/L (7.0-40); AST/SGOT 24 U/L (<34); BILIRUBIN,TOTAL 1.5 MG/DL (0.3-1.2); BLOOD UREA NITROGEN 14 MG/DL (9-23); CALCIUM LEVEL 9.5 MG/DL (8.5-10.1); CARBON DIOXIDE LEVEL 26 MMOL/L (20-31); CHLORIDE LEVEL 108 MMOL/L (98-107); CHOLESTEROL LEVEL 189 MG/DL (<200); CHOLESTEROL RISK RATIO 3.56 (<5); CREATININE FOR GFR 0.71 MG/DL (0.55-1.30); GLOMERULAR FILTRATION RATE > 60.0 (>60); GLUCOSE, FASTING 99 MG/DL (60-100); POTASSIUM SERUM 4.1 MMOL/L (3.5-5.1); SODIUM LEVEL 140 MMOL/L (136-145); TOTAL PROTEIN 7.5 G/DL (5.7-8.2); TRIGLYCERIDES LEVEL 60 MG/DL (<150)
== END ==
LOC: M LABWUC 13:10
PROVIDERS: ATTEND Physician Assistant
DX: F41.9 Anxiety disorder, unspecified (principal)

== ENCOUNTER → 2025-01-17 | Outpatient (CLI) | payer OTHER | LOC: M WHC 06:53 | PROVIDERS: ATTEND Physician Assistant | DX: R10.11 Right upper quadrant pain (principal); R94.5 Abnormal results of liver function studies ==